=== PATIENT | female | born 1950 | race Caucasian/White ===

== ENCOUNTER 2022-01-06 09:29 | Inpatient (IN) | payer MEDICARE ==
[~2022-01-06] VITALS: Ht 167.6 cm; Wt 66.0 kg
--- NOTE | 2022-01-06 10:03 | PHYS DOC ---
Past Medical History Additional Past Medical Histor: ACUTE EMBOLISM, BRADYCARDIA Past Surgical History: Appendectomy Smoking Status: Former Smoker Alcohol Use: None General Adult EDM: Chief Complaint: LOWER EXT PAIN HPI: HPI: Patient is a 71 year old female from a assisted living home comes in with right leg pain. 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 Patient was initially not sure which leg she was having swelling and pain in due to her baseline dementia. Patient denies any chest pain or shortness of breath. Review of Systems: Review of Systems: Constitutional: Denies fever or chills. Eyes: Denies change in visual acuity. HENT: Denies nasal congestion or sore throat. Respiratory: Denies cough or shortness of breath. Cardiovascular: Denies chest pain or edema. GI: Denies abdominal pain, nausea, vomiting, bloody stools or diarrhea. [ : Denies dysuria. [] Musculoskeletal: Right leg pain. Denies back pain or joint pain. Integument: Denies rash. [ Neurologic: Denies headache, focal weakness or sensory changes. [ Endocrine: Denies polyuria or polydipsia. [] Lymphatic: Denies swollen glands. [] Psychiatric: Denies depression or anxiety. [] Heart Score: C/O Chest Pain: No Risk Factors: Risk Factors: DM, Current or recent (<one month) smoker, HTN, HLP, family h istory of CAD, obesity. Risk Scores: Score 0 - 3: 2.5% MACE over next 6 weeks - Discharge Home Score 4 - 6: 20.3% MACE over next 6 weeks - Admit for Clinical Observation Score 7 - 10: 72.7% MACE over next 6 weeks - Early Invasive Strategies Allergies: Allergies: Allergies Coded Allergies Type Severity Reaction Last Updated Verified meperidine Allergy Intermediate 01/06/22 Yes Physical Exam: PE: Constitutional: Well developed, well nourished, no acute distress, non-toxic appearance. [] HENT: Normocephalic, atraumatic, bilateral external ears normal, oropharynx moist, no oral exudates, nose normal. [] Eyes: PERRLA, EOMI, conjunctiva normal, no discharge. [] Neck: Normal range of motion, no tenderness, supple, no stridor. [] Cardiovascular:Heart rate regular rhythm, no murmur [] Lungs & Thorax: Bilateral breath sounds clear to auscultation [] Abdomen: Bowel sounds normal, soft, no tenderness, no masses, no pulsatile masses. [] Skin: Warm, dry, no erythema, no rash. [] Back: No tenderness, no CVA tenderness. [] Extremities: Patient has swelling of the right foot and nonpitting edema. Patient has erythema. Neurologic: Alert and oriented X 3, normal motor function, normal sensory function, no focal deficits noted. [] Psychologic: Affect normal, judgement normal, mood normal. [] Current Patient Data: Vital Signs: Vital Signs Date Time Temp Pulse Resp B/P (MAP) Pulse Ox O2 Delivery O2 Flow Rate FiO2 01/06/22 09:29 97.4 63 18 125/74 (91) 95 Room Air 97.4 EKG: EKG: [] Radiology/Procedures: Radiology/Procedures: [] Course & Med Decision Making: Course & Med Decision Making Pertinent Labs and Imaging studies reviewed. (See chart for details) [] Dragon Disclaimer: Luis Alfredo Disclaimer: This electronic medical record was generated, in whole or in part, using a voice recognition dictation system. NERY GERBER DO Jan 06, 2022 10:03
--- NOTE | 2022-01-06 10:40 | RAD ---
Examination: Bilateral Lower Extremity Venous Doppler Ultrasound History: Bilateral calf pain Comparison: None Procedure: Karimi scale, color flow 2D and spectal waveform analysis images are obtained with and witho ut compression in the area of the common femoral vein, superficial femoral vein - femoral vein juncti on, main femoral vein (superficial femoral vein) and popliteal vein. Veins of the proximal calf are a lso imaged. Findings: The bilateral common femoral vein, superficial femoral vein, right popliteal vein, calf veins are pat ent. There is echogenicity identified in the left popliteal vein likely partial nonocclusive thrombus . Impression: 1. Nonocclusive deep venous thrombus left popliteal vein. FOR INTERNAL CODING PURPOSES Critical result: Findings discussed with patient's nurse in ER at 01/06/2022 10:38 AM. RESULT CODE: (C) Electronically signed by: Jack Slaughter MD (01/06/2022 10:38 AM) [id number]
[2022-01-06] MEDS ORDERED: HEPARIN for IV BOLUS 10,000 UNIT/10 ML VIAL. IV PRN ×3 (11:45→12:45)
[2022-01-06] MEDS ORDERED: HEPARIN 25,000UTS/250ML PREMIX 250 ML IV PRN (11:45)
[2022-01-06] MEDS ORDERED: HEPARIN for IV BOLUS 10,000 UNIT/10 ML VIAL. IV ONE ×2 (12:00→12:45)
[2022-01-06 12:53] LABS: BASO % 0 % (0-3); EOS # 0.1 x10^3/uL (0.0-0.7); EOS % 1 % (0-3); HEMATOCRIT 32.3 % (36.0-47.0); HEMOGLOBIN 10.3 g/dL (12.0-15.5); LYMPH # 0.8 x10^3/uL (1.0-4.8); LYMPH % 7 % (24-48); MEAN CORPUSCULAR HEMOGLOBIN 25 pg (25-35); MEAN CORPUSCULAR HGB CONC 32 g/dL (31-37); MEAN CORPUSCULAR VOLUME 78 fL (79-100); MONO # 0.4 x10^3/uL (0.0-1.1); MONO % 3 % (0-9); NEUT # 11.5 x10^3/uL (1.8-7.7); NEUT % 89 % (31-73); PLATELET COUNT 360 x10^3/uL (140-400); RED BLOOD COUNT 4.15 x10^6/uL (3.50-5.40); RED CELL DISTRIBUTION WIDTH 17.1 % (11.5-14.5); WHITE BLOOD COUNT 12.9 x10^3/uL (4.0-11.0)
[2022-01-06 13:03] LABS: PROTHROMBIN TIME PATIENT 14.7 SEC (11.7-14.0)
[2022-01-06 13:09] LABS: CALCIUM 8.3 mg/dL (8.5-10.1); CREATININE 0.9 mg/dL (0.6-1.0); GFR 61.5; POTASSIUM 3.9 mmol/L (3.5-5.1)
[2022-01-06 13:15] LABS: ALBUMIN 2.1 g/dL (3.4-5.0); ALBUMIN/GLOBULIN RATIO 0.4 (1.0-1.7); TOTAL BILIRUBIN 0.3 mg/dL (0.2-1.0); TOTAL PROTEIN 7.1 g/dL (6.4-8.2)
[2022-01-06] MEDS ORDERED: DONE5TAB7 PO (13:29)
[2022-01-06] MEDS ORDERED: CALC-496 PO (13:29)
[2022-01-06] MEDS ORDERED: CALC11776 PO (13:29)
[2022-01-06] MEDS ORDERED: LANO454C2 TP (13:29)
[2022-01-06] MEDS ORDERED: ACET325T21 PO (13:29)
[2022-01-06] MEDS ORDERED: FERR325T14 PO (13:29)
[2022-01-06] MEDS ORDERED: CITA10TA8 PO (13:29)
[2022-01-06] MEDS ORDERED: MENT118G TP (13:29)
--- NOTE | 2022-01-06 14:20 | PDOC1 ---
History and Physical Date of Service: DOS: DATE: 01/06/22 TIME: 14:18 Chief Complaint: Chief Complain: Lower leg pain History of Present Illness: HPI: 71 year old female from a assisted living home comes in with right leg pain. 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 Patient was initially not sure which leg she was having swelling and pain in due to her baseline dementia. Patient denies any chest pain or shortness of breath. Past Medical/Surgical History: PMH/PSH: Additional Past Medical Histor: ACUTE EMBOLISM, BRADYCARDIA Past Surgical History: Appendectomy Allergies: Allergies: Coded Allergies: meperidine (Verified Allergy, Intermediate, 01/06/22) Family History: Family History: Reviewed with no relative findings in the chart Social History: Social History: Smoking Status: Former Smoker Alcohol Use: None Current Medications: Current Medications Current Medications Heparin Sodium (Porcine) (Heparin Sodium) 5,100 unit 1X ONCE IV ; Start 01/06/22 at 12:00; Stop 01/06/22 at 12:01; Status Cancel Heparin Sodium/ Dextrose 250 ml @ 10.416 mls/ hr CONT PRN IV PER PROTOCOL Last administered on 01/06/22at 12:46; Start 01/06/22 at 11:45 Heparin Sodium (Porcine) (Heparin Sodium) 1,900 unit PRN Q6HRS PRN IV FOR UFH LEVEL LESS THAN 0.2; Start 01/06/22 at 11:45; Stop 01/06/22 at 12:37; Status DC Heparin Sodium (Porcine) (Heparin Sodium) 950 unit PRN Q6HRS PRN IV FOR UFH LEVEL 0.2 - 0.29; Start 01/06/22 at 11:45; Stop 01/06/22 at 12:40; Status DC Heparin Sodium (Porcine) (Heparin Sodium) 2,000 unit PRN Q6HRS PRN IV FOR UFH LEVEL LESS THAN 0.2; Start 01/06/22 at 12:45 Heparin Sodium (Porcine) (Heparin Sodium) 5,200 unit 1X ONCE IV Last administered on 01/06/22at 12:45; Start 01/06/22 at 12:45; Stop 01/06/22 at 12:46; Status DC Heparin Sodium (Porcine) (Heparin Sodium) 1,000 unit PRN Q6HRS PRN IV FOR UFH LEVEL 0.2 - 0.29; Start 01/06/22 at 12:40 Active Scripts Active Reported Tums Ultra Strength (Calcium Carbonate) 470 Mg Tab.chew 470 Mg PO PRN Q4HRS PRN Acetaminophen 325 Mg Tablet 2 Tab PO PRN Q6HRS PRN 30 Days Donepezil Hcl 5 Mg Tablet 5 Mg PO DAILY Ferrous Sulfate 325 Mg Tablet 1 Tab PO TID Calcium 600 + Vit D3 Tablet (Calcium Carbonate/Vitamin D3) 1 Each Tablet 1 Tab PO BID 30 Days Biofreeze (Menthol) 118 Ml Gel..ml. 1 Mirta TP PRN TID PRN 10 Days Celexa (Citalopram Hydrobromide) 10 Mg Tablet 1 Tab PO DAILY Eucerin Cream (Lanolin Alcohol/Mo/W.pet/[place]) 454 Gm Cream..g. 454 Gm TP PRN BID PRN ROS: Review of Systems Review of System REVIEW OF SYSTEMS: GENERAL: Denies weakness SKIN: No bruising, hair changes or rashes. EYES: No blurred, double or loss of vision. NOSE AND THROAT: No history of nosebleeds, hoarseness or sore throat. HEART: No history of palpitations, chest pain or shortness of breath on exertion. LUNGS: Denies cough, hemoptysis, wheezing or shortness of breath. GASTROINTESTINAL: Denies changes in appetite, nausea, vomiting, diarrhea or constipation. GENITOURINARY: No history of frequency, urgency, hesitancy or nocturia. NEUROLOGIC: Denies history of numbness, tingling, or tremor. PSYCHIATRIC: No history of panic, anxiety or depression. ENDOCRINE: No history of heat or cold intolerance, polyuria or polydipsia. EXTREMITIES: Denies joint pain, pain on walking or stiffness. Physical Exam: Vital Signs: Vital Signs Date Time Temp Pulse Resp B/P (MAP) Pulse Ox O2 Delivery O2 Flow Rate FiO2 01/06/22 13:41 Room Air 01/06/22 12:46 62 16 120/58 (78) 91 01/06/22 09:29 97.4 97.4 Physcial Exam: GEN: No apparent distress. Alert and oriented HEENT: Normal cephalic, atraumatic, external auditory canals are patent EYES: Extraocular muscles are intact, pupil are equally round and reactive to light and accommodation MUSCULOSKELETAL: Well developed , well nourished, good range of motion ENDOCRINE: No thyromegaly was palpated LYMPHATICS: No cervical chain or axillary nodes were noted HEMATOPOIETIC: No bruising NECK: Supple, no JVD, no thyromegaly was noted LUNGS: Clear to auscultation in all lung jensen without rhonchi or wheezing HEART: RRR, S!, S2 present. Peripheral pulses intact, no obvious murmurs noted ABDOMEN: Soft, nontender. Positive bowel sounds, no organomegaly, normal bowel sounds EXTREMITIES: Without clubbing, cyanosis, or edema. Pedal pulses intact. Nega tive Homans sign NEUROLOGIC: Normal speech and tone. A&O x 3, moves all extremities, no obvious focal deficits PSYCHIATRIC: Normal affect, normal mood. Stable SKIN: No ulcerations or rashes, good skin turgor, no jaundice VASCULAR: Good capillary refill, neurovascular bundle appears to be intact Labs: Labs: Laboratory Tests Test 01/06/22 12:20 White Blood Count 12.9 x10^3/uL (4.0-11.0) Red Blood Count 4.15 x10^6/uL (3.50-5.40) Hemoglobin 10.3 g/dL (12.0-15.5) Hematocrit 32.3 % (36.0-47.0) Mean Corpuscular Volume 78 fL (79-100) Mean Corpuscular Hemoglobin 25 pg (25-35) Mean Corpuscular Hemoglobin Concent 32 g/dL (31-37) Red Cell Distribution Width 17.1 % (11.5-14.5) Platelet Count 360 x10^3/uL (140-400) Neutrophils (%) (Auto) 89 % (31-73) Lymphocytes (%) (Auto) 7 % (24-48) Monocytes (%) (Auto) 3 % (0-9) Eosinophils (%) (Auto) 1 % (0-3) Basophils (%) (Auto) 0 % (0-3) Neutrophils # (Auto) 11.5 x10^3/uL (1.8-7.7) Lymphocytes # (Auto) 0.8 x10^3/uL (1.0-4.8) Monocytes # (Auto) 0.4 x10^3/uL (0.0-1.1) Eosinophils # (Auto) 0.1 x10^3/uL (0.0-0.7) Basophils # (Auto) 0.0 x10^3/uL (0.0-0.2) Prothrombin Time 14.7 SEC (11.7-14.0) Prothromb Time International Ratio 1.2 (0.8-1.1) Sodium Level 139 mmol/L (136-145) Potassium Level 3.9 mmol/L (3.5-5.1) Chloride Level 103 mmol/L (98-107) Carbon Dioxide Level 30 mmol/L (21-32) Anion Gap 6 (6-14) Blood Urea Nitrogen 13 mg/dL (7-20) Creatinine 0.9 mg/dL (0.6-1.0) Estimated GFR (Cockcroft-Gault) 61.5 BUN/Creatinine Ratio 14 (6-20) Glucose Level 90 mg/dL (70-99) Calcium Level 8.3 mg/dL (8.5-10.1) Total Bilirubin 0.3 mg/dL (0.2-1.0) Aspartate Amino Transf (AST/SGOT) 23 U/L (15-37) Alanine Aminotransferase (ALT/SGPT) 23 U/L (14-59) Alkaline Phosphatase 58 U/L (46-116) Total Protein 7.1 g/dL (6.4-8.2) Albumin 2.1 g/dL (3.4-5.0) Albumin/Globulin Ratio 0.4 (1.0-1.7) Laboratory Tests Test 01/06/22 12:20 White Blood Count 12.9 x10^3/uL (4.0-11.0) Red Blood Count 4.15 x10^6/uL (3.50-5.40) Hemoglobin 10.3 g/dL (12.0-15.5) Hematocrit 32.3 % (36.0-47.0) Mean Corpuscular Volume 78 fL (79-100) Mean Corpuscular Hemoglobin 25 pg (25-35) Mean Corpuscular Hemoglobin Concent 32 g/dL (31-37) Red Cell Distribution Width 17.1 % (11.5-14.5) Platelet Count 360 x10^3/uL (140-400) Neutrophils (%) (Auto) 89 % (31-73) Lymphocytes (%) (Auto) 7 % (24-48) Monocytes (%) (Auto) 3 % (0-9) Eosinophils (%) (Auto) 1 % (0-3) Basophils (%) (Auto) 0 % (0-3) Neutrophils # (Auto) 11.5 x10^3/uL (1.8-7.7) Lymphocytes # (Auto) 0.8 x10^3/uL (1.0-4.8) Monocytes # (Auto) 0.4 x10^3/uL (0.0-1.1) Eosinophils # (Auto) 0.1 x10^3/uL (0.0-0.7) Basophils # (Auto) 0.0 x10^3/uL (0.0-0.2) Prothrombin Time 14.7 SEC (11.7-14.0) Prothromb Time International Ratio 1.2 (0.8-1.1) Sodium Level 139 mmol/L (136-145) Potassium Level 3.9 mmol/L (3.5-5.1) Chloride Level 103 mmol/L (98-107) Carbon Dioxide Level 30 mmol/L (21-32) Anion Gap 6 (6-14) Blood Urea Nitrogen 13 mg/dL (7-20) Creatinine 0.9 mg/dL (0.6-1.0) Estimated GFR (Cockcroft-Gault) 61.5 BUN/Creatinine Ratio 14 (6-20) Glucose Level 90 mg/dL (70-99) Calcium Level 8.3 mg/dL (8.5-10.1) Total Bilirubin 0.3 mg/dL (0.2-1.0) Aspartate Amino Transf (AST/SGOT) 23 U/L (15-37) Alanine Aminotransferase (ALT/SGPT) 23 U/L (14-59) Alkaline Phosphatase 58 U/L (46-116) Total Protein 7.1 g/dL (6.4-8.2) Albumin 2.1 g/dL (3.4-5.0) Albumin/Globulin Ratio 0.4 (1.0-1.7) Images: Images PROCEDURE: VENOUS LOWER EXT BILATERAL Examination: Bilateral Lower Extremity Venous Doppler Ultrasound History: Bilateral calf pain Comparison: None Procedure: Karimi scale, color flow 2D and spectal waveform analysis images are obtained with and without compression in the area of the common femoral vein, superficial femoral vein - femoral vein junction, main femoral vein (superficial femoral vein) and popliteal vein. Veins of the proximal calf are also imaged. Findings: The bilateral common femoral vein, superficial femoral vein, right popliteal vein, calf veins are patent. There is echogenicity identified in the left popliteal vein likely partial nonocclusive thrombus. Impression: 1. Nonocclusive deep venous thrombus left popliteal vein. Assessment/Plan Assessment/Plan Acute left lower extremity popliteal DVT, nonocclusive Microcytic anemia, likely due to VICTORINO Pending vascular studies Continue heparin drip and consider transitioning to Eliquis Justifications for Admission Other Justification DARIO CHRISTIANSON MD Jan 06, 2022 14:20
[2022-01-06] MEDS ORDERED: diphenhydrAMINE HCL 25 MG CAPSULE PO PRN ×2 (14:30)
[2022-01-06] MEDS ORDERED: PROCHLORPERAZINE 10 MG/2 ML VIAL. IV PRN (14:30)
[2022-01-06] MEDS ORDERED: DOCUSATE SODIUM 100 MG CAPSULE. PO PRN (14:30)
[2022-01-06] MEDS ORDERED: diphenhydrAMINE 50 MG/ML VIAL IVP PRN (14:30)
[2022-01-06] MEDS ORDERED: ZOLPIDEM 5 MG TABLET. PO PRN (14:30)
[2022-01-06] MEDS ORDERED: LORazepam 0.5 MG TABLET PO PRN (14:30)
[2022-01-06] MEDS ORDERED: DEXTROSE 50% 25 GM / 50ML DISP.SYRIN. IV PRN (14:30)
[2022-01-06] MEDS ORDERED: ONDANSETRON PF 4 MG/2 ML VIAL. IVP PRN (14:30)
[2022-01-06] MEDS ORDERED: CALCIUM CARBONATE 500 MG TAB.CHEW PO PRN (14:30)
[2022-01-06] MEDS ORDERED: ACETAMINOPHEN 325 MG TABLET. PO PRN (14:30)
[2022-01-06] MEDS ORDERED: SENNOSIDES 8.6 MG TABLET PO PRN (14:30)
[2022-01-06] MEDS ORDERED: METHYL SALICYLATE/MENTHOL TOPICAL CREAM 57GM TUBE. TP PRN (14:45)
[2022-01-06 15:00] VITALS: BP 123/64
[2022-01-06] MEDS: CALCIUM CARB/VIT D3 500/200 TABLET. PO SCH (16:20)
[2022-01-06 19:00] VITALS: BP 141/57
[2022-01-06] MEDS: HEPARIN for IV BOLUS 10,000 UNIT/10 ML VIAL. IV PRN (19:36)
[2022-01-06 23:03] VITALS: BP 101/43
[2022-01-07 01:41] LABS: BASO % 0 % (0-3); EOS # 0.1 x10^3/uL (0.0-0.7); EOS % 1 % (0-3); HEMATOCRIT 31.1 % (36.0-47.0); HEMOGLOBIN 9.8 g/dL (12.0-15.5); LYMPH # 1.3 x10^3/uL (1.0-4.8); LYMPH % 10 % (24-48); MEAN CORPUSCULAR HEMOGLOBIN 24 pg (25-35); MEAN CORPUSCULAR HGB CONC 32 g/dL (31-37); MEAN CORPUSCULAR VOLUME 78 fL (79-100); MONO # 0.4 x10^3/uL (0.0-1.1); MONO % 3 % (0-9); NEUT # 11.5 x10^3/uL (1.8-7.7); NEUT % 86 % (31-73); PLATELET COUNT 337 x10^3/uL (140-400); RED BLOOD COUNT 4.02 x10^6/uL (3.50-5.40); RED CELL DISTRIBUTION WIDTH 17.1 % (11.5-14.5); WHITE BLOOD COUNT 13.4 x10^3/uL (4.0-11.0)
[2022-01-07] MEDS: HEPARIN for IV BOLUS 10,000 UNIT/10 ML VIAL. IV PRN (02:03)
[2022-01-07 02:10] LABS: ALBUMIN 1.9 g/dL (3.4-5.0); ALBUMIN/GLOBULIN RATIO 0.4 (1.0-1.7); CALCIUM 8.2 mg/dL (8.5-10.1); CREATININE 0.9 mg/dL (0.6-1.0); GFR 61.5; PHOSPHORUS 3.9 mg/dL (2.6-4.7); POTASSIUM 4.5 mmol/L (3.5-5.1); TOTAL BILIRUBIN 0.3 mg/dL (0.2-1.0); TOTAL PROTEIN 6.5 g/dL (6.4-8.2)
[2022-01-07 03:07] VITALS: BP 107/52
[2022-01-07 07:00] VITALS: BP 137/61
[2022-01-07] MEDS: CALCIUM CARB/VIT D3 500/200 TABLET. PO SCH ×2 (08:08→16:11)
--- NOTE | 2022-01-07 08:59 | PDOC ---
[facility] PROGRESS NOTE Date of Service DOS: DATE: 01/07/22 TIME: 08:58 Chief Complaint Chief Complaint Left leg DVT -popliteal fossa Right leg cellulitis -decreased pulses we will check vascular studies History of Present Illness History of Present Illness Seen bedside on heparin gtt. Left leg with less pain. Transition to oral Eliquis today. Right leg swollen red decreased pulses will obtain arterial Doppler and has lateral malleoli are eschar will start on doxycycline and Keflex for cellulitis. Vitals/I&O Vitals/I&O: Vital Signs Date Time Temp Pulse Resp B/P (MAP) Pulse Ox O2 Delivery O2 Flow Rate FiO2 01/07/22 08:00 Room Air 01/07/22 07:00 98.0 66 18 137/61 (86) 95 98.0 Labs Labs: Laboratory Tests Test 01/06/22 12:20 01/06/22 18:30 01/07/22 01:30 White Blood Count 12.9 x10^3/uL (4.0-11.0) 13.4 x10^3/uL (4.0-11.0) Red Blood Count 4.15 x10^6/uL (3.50-5.40) 4.02 x10^6/uL (3.50-5.40) Hemoglobin 10.3 g/dL (12.0-15.5) 9.8 g/dL (12.0-15.5) Hematocrit 32.3 % (36.0-47.0) 31.1 % (36.0-47.0) Mean Corpuscular Volume 78 fL (79-100) 78 fL (79-100) Mean Corpuscular Hemoglobin 25 pg (25-35) 24 pg (25-35) Mean Corpuscular Hemoglobin Concent 32 g/dL (31-37) 32 g/dL (31-37) Red Cell Distribution Width 17.1 % (11.5-14.5) 17.1 % (11.5-14.5) Platelet Count 360 x10^3/uL (140-400) 337 x10^3/uL (140-400) Neutrophils (%) (Auto) 89 % (31-73) 86 % (31-73) Lymphocytes (%) (Auto) 7 % (24-48) 10 % (24-48) Monocytes (%) (Auto) 3 % (0-9) 3 % (0-9) Eosinophils (%) (Auto) 1 % (0-3) 1 % (0-3) Basophils (%) (Auto) 0 % (0-3) 0 % (0-3) Neutrophils # (Auto) 11.5 x10^3/uL (1.8-7.7) 11.5 x10^3/uL (1.8-7.7) Lymphocytes # (Auto) 0.8 x10^3/uL (1.0-4.8) 1.3 x10^3/uL (1.0-4.8) Monocytes # (Auto) 0.4 x10^3/uL (0.0-1.1) 0.4 x10^3/uL (0.0-1.1) Eosinophils # (Auto) 0.1 x10^3/uL (0.0-0.7) 0.1 x10^3/uL (0.0-0.7) Basophils # (Auto) 0.0 x10^3/uL (0.0-0.2) 0.0 x10^3/uL (0.0-0.2) Prothrombin Time 14.7 SEC (11.7-14.0) Prothromb Time International Ratio 1.2 (0.8-1.1) Sodium Level 139 mmol/L (136-145) 137 mmol/L (136-145) Potassium Level 3.9 mmol/L (3.5-5.1) 4.5 mmol/L (3.5-5.1) Chloride Level 103 mmol/L (98-107) 104 mmol/L (98-107) Carbon Dioxide Level 30 mmol/L (21-32) 29 mmol/L (21-32) Anion Gap 6 (6-14) 4 (6-14) Blood Urea Nitrogen 13 mg/dL (7-20) 12 mg/dL (7-20) Creatinine 0.9 mg/dL (0.6-1.0) 0.9 mg/dL (0.6-1.0) Estimated GFR (Cockcroft-Gault) 61.5 61.5 BUN/Creatinine Ratio 14 (6-20) 13 (6-20) Glucose Level 90 mg/dL (70-99) 108 mg/dL (70-99) Calcium Level 8.3 mg/dL (8.5-10.1) 8.2 mg/dL (8.5-10.1) Total Bilirubin 0.3 mg/dL (0.2-1.0) 0.3 mg/dL (0.2-1.0) Aspartate Amino Transf (AST/SGOT) 23 U/L (15-37) 18 U/L (15-37) Alanine Aminotransferase (ALT/SGPT) 23 U/L (14-59) 17 U/L (14-59) Alkaline Phosphatase 58 U/L (46-116) 53 U/L (46-116) Total Protein 7.1 g/dL (6.4-8.2) 6.5 g/dL (6.4-8.2) Albumin 2.1 g/dL (3.4-5.0) 1.9 g/dL (3.4-5.0) Albumin/Globulin Ratio 0.4 (1.0-1.7) 0.4 (1.0-1.7) Heparin Anti-Xa Act, Unfractionated 0.26 IU/mL (0.30-0.70) 0.27 IU/mL (0.30-0.70) Phosphorus Level 3.9 mg/dL (2.6-4.7) Magnesium Level 2.0 mg/dL (1.8-2.4) Assessment and Plan Assessmemt and Plan Problems Medical Problems: (1) DVT (deep venous thrombosis) Status: Acute Comment Review of Relevant I have reviewed the following items charla (where applicable) has been applied. Medications: Current Medications Medications (Trade) Dose Ordered Sig/Jurgen Route PRN Reason Start Time Stop Time Status Last Admin Dose Admin Heparin Sodium/ Dextrose 250 ml @ 10.416 mls/ hr CONT PRN IV PER PROTOCOL 01/06/22 11:45 01/06/22 12:46 Heparin Sodium (Porcine) (Heparin Sodium) 5,200 unit 1X ONCE IV 01/06/22 12:45 01/06/22 12:46 DC 01/06/22 12:45 Heparin Sodium (Porcine) (Heparin Sodium) 1,000 unit PRN Q6HRS PRN IV FOR UFH LEVEL 0.2 - 0.29 01/06/22 12:40 01/07/22 02:03 Citalopram Hydrobromide (CeleXA) 10 mg DAILY PO 01/07/22 09:00 01/07/22 08:08 Calcium/Vitamin D (Oscal D 500mg/ 200uts) 1 tab BIDWMEALS PO 01/06/22 17:00 01/07/22 08:08 Justifications for Admission Other Justification DVT of the lower extremity ACE VALERIO MD Jan 07, 2022 08:59
[2022-01-07] MEDS ORDERED: CEPHALEXIN 250 MG CAPSULE. PO SCH (09:00)
[2022-01-07] MEDS ORDERED: DOXYCYCLINE HYCLATE 100 MG TABLET PO SCH (09:00)
[2022-01-07] MEDS ORDERED: APIXABAN 5 MG TABLET. PO SCH (09:00)
[2022-01-07] MEDS ORDERED: CITALOPRAM 10 MG TABLET. PO SCH (09:00)
[2022-01-07 11:00] VITALS: BP 118/50
[2022-01-07] MEDS ORDERED: LACTOBACILLUS RHAMNOSUS GG 1 CAPSULE. PO SCH (11:00)
--- NOTE | 2022-01-07 11:35 | RAD ---
US RIGHT LOWER EXTREMITY ARTERIAL DUPLEX EVAL Indication: Reason: Cellulitis, lateral wound, decreased pulses, concern for P.A.D. / Spl. Instructio ns: / History: Comparison: None. Procedure: Real-time grayscale, color flow Doppler, and Doppler spectral waveform analysis of the art erial system of the lower extremity is performed. Findings: Right lower extremity: Triphasic or biphasic waveforms throughout the majority the right lower extrem ity. Monophasic waveforms within the anterior tibial and dorsalis pedis artery. No significant veloci ty elevation. No occlusion. Mild atheromatous plaque. IMPRESSION: 1. Monophasic waveform within the anterior tibial and dorsalis pedis arteries, may indicate proximal stenosis. 2. Mild atheromatous plaque. Electronically signed by: Carlos Morrison DO (01/07/2022 11:32 AM) [id number]
--- NOTE | 2022-01-07 12:41 | NUR ---
SS following for discharge planning. SS reviewed pt chart and discussed with pt RN. Pt is from [facility], ; fax [phone], and is currently on room air. PT/OT ordered. Probable discharge back to the [facility] later today. Clinical updates phoned and faxed to the [facility]. SS will continue to follow for discharge planning. Addendum: 01/07/22 at 1519 by NIKOLE THOMAS Discharge orders received and sent to the [facility]. RN spoke with DEQUAN Diego at the [facility]. Pt will discharge today and return to the [facility] between 1700 and 1730 via [email or web address] transportation, .
[2022-01-07] MEDS ORDERED: DOXY100T PO (14:12)
[2022-01-07] MEDS ORDERED: CEPH250C PO (14:12)
[2022-01-07] MEDS ORDERED: APIX5TAB PO (14:12)
--- NOTE | 2022-01-07 14:15 | SNU/HH DC ---
DISCHARGE WITH HOME HEALTH DISCHARGE INFORMATION: Discharge Date: Jan 07, 2022 Final Diagnosis: Problems Medical Problems: (1) DVT (deep venous thrombosis) Status: Acute Condition on Discharge: Stable CODE STATUS: Code Status: Full HOME HEALTH: Face to Face: I certify this patient is under my care and that I, or a nurse practitioner or physician's pet care assistant working with me, had a face to face encounter that meets the physician face to face encounter requirements with this patient on 01/07/2022. Medical Complications: Dementia, Other (DVT) Penitentiary For: Assess & Educate Safety, Medication Management RN For Eval/Treatment: Yes Physical Therapy For: Evalulation/Treatment Occupational Therapy For: Evaluation/Treatment Pt Meets Homebound Status: Limited distance walking, Poor cognition POST DISCHARGE ORDERS: Activity Instructions for Disc: Resume previous activity Weight Bearing Status after Di: Full weight bearing DIET AFTER DISCHARGE: Regular Wound/Incision Care: Keep wound/cast CDI CHECKS AFTER DISCHARGE: Checks after discharge: Check blood press - daily, Check your Temp as needed FOLLOW-UP: Additional Instructions: For peripheral arterial disease: Vascular Surgery - Dr. Joi Hudson [id number] [place] [address] For blood clot/DVT management: Dr. Matthew Crawley [address], [place], [place] [address] P: [phone] F: [phone] Podiatry - Dr. Bonita Harley [facility] [address] [place] [address] CERTIFICATION STATEMENT: Certification Statement: Certification Statement: Based on the above finding, I certify that this patient is confined to the home and needs intermittent mcfp care, physical therapy and/or speech therapy, or continues to need occupational therapy.~ This patient is under my care, and I have initiated the establishment of the plan of care.~ This patient will be followed by myself or a community physician who will periodically review the plan of care. Home Meds Active Scripts Apixaban (ELIQUIS) 5 Mg Tablet, 10 MG PO BID for DVT for 30 Days, #74 TAB 11 Refills Prov:ACE VALERIO MD 01/07/22 Doxycycline Hyclate (DOXYCYCLINE HYCLATE) 100 Mg Tablet, 100 MG PO BID for Cellulitis for 7 Days, #14 TAB Prov:ACE VALERIO MD 01/07/22 Cephalexin (KEFLEX) 250 Mg Capsule, 500 MG PO BID for Cellulitis for 7 Days, #28 CAP Prov:ACE VALERIO MD 01/07/22 Reported Medications Calcium Carbonate (Tums Ultra Strength) 470 Mg Tab.chew, 470 MG PO PRN Q4HRS PRN for HEARTBURN / GAS, TAB.CHEW 01/06/22 Acetaminophen (ACETAMINOPHEN) 325 Mg Tablet, 2 TAB PO PRN Q6HRS PRN for pain or fever for 30 Days, #30 TAB 0 Refills 01/06/22 Donepezil Hcl (DONEPEZIL HCL) 5 Mg Tablet, 5 MG PO DAILY for DEMENTIA , TAB 01/06/22 Ferrous Sulfate (FERROUS SULFATE) 325 Mg Tablet, 1 TAB PO TID for ANEMIA , #60 TAB 3 Refills 01/06/22 Calcium Carbonate/Vitamin D3 (CALCIUM 600 + VIT D3 TABLET) 1 Each Tablet, 1 TAB PO BID for SUPPLEMENT for 30 Days, #60 TAB 0 Refills 01/06/22 Menthol (BIOFREEZE) 118 Ml Gel..ml., 1 CHRISTIANO TP PRN TID PRN for PAIN for 10 Days, #118 ML 0 Refills 01/06/22 Citalopram Hydrobromide (CELEXA) 10 Mg Tablet, 1 TAB PO DAILY for DEPRESSION, #30 TAB 2 Refills 01/06/22 Lanolin Alcohol/Mo/W.pet/[place] (Eucerin Cream) 454 Gm Cream..g., 454 GM TP PRN BID PRN for DRY SKIN / SCALING, EACH 01/06/22 ACE VALERIO MD Jan 07, 2022 14:15
--- NOTE | 2022-01-07 14:22 | PDOC3 ---
Discharge Summary Visit Information Date of Admission: Jan 06, 2022 Date of Discharge: Jan 07, 2022 Admitting Diagnosis: Left popliteal DVT Final Diagnosis Problems Medical Problems: (1) DVT (deep venous thrombosis) Status: Acute Brief Hospital Course Allergies Allergies Coded Allergies Type Severity Reaction Last Updated Verified meperidine Allergy Intermediate 01/06/22 Yes Vital Signs Vital Signs Date Time Temp Pulse Resp B/P (MAP) Pulse Ox O2 Delivery O2 Flow Rate FiO2 01/07/22 11:00 97.4 49 18 118/50 (72) 98 Room Air 97.4 Lab Results Laboratory Tests Test 01/06/22 12:20 01/06/22 18:30 01/07/22 01:30 01/07/22 10:00 White Blood Count 12.9 x10^3/uL (4.0-11.0) 13.4 x10^3/uL (4.0-11.0) Red Blood Count 4.15 x10^6/uL (3.50-5.40) 4.02 x10^6/uL (3.50-5.40) Hemoglobin 10.3 g/dL (12.0-15.5) 9.8 g/dL (12.0-15.5) Hematocrit 32.3 % (36.0-47.0) 31.1 % (36.0-47.0) Mean Corpuscular Volume 78 fL (79-100) 78 fL (79-100) Mean Corpuscular Hemoglobin 25 pg (25-35) 24 pg (25-35) Mean Corpuscular Hemoglobin Concent 32 g/dL (31-37) 32 g/dL (31-37) Red Cell Distribution Width 17.1 % (11.5-14.5) 17.1 % (11.5-14.5) Platelet Count 360 x10^3/uL (140-400) 337 x10^3/uL (140-400) Neutrophils (%) (Auto) 89 % (31-73) 86 % (31-73) Lymphocytes (%) (Auto) 7 % (24-48) 10 % (24-48) Monocytes (%) (Auto) 3 % (0-9) 3 % (0-9) Eosinophils (%) (Auto) 1 % (0-3) 1 % (0-3) Basophils (%) (Auto) 0 % (0-3) 0 % (0-3) Neutrophils # (Auto) 11.5 x10^3/uL (1.8-7.7) 11.5 x10^3/uL (1.8-7.7) Lymphocytes # (Auto) 0.8 x10^3/uL (1.0-4.8) 1.3 x10^3/uL (1.0-4.8) Monocytes # (Auto) 0.4 x10^3/uL (0.0-1.1) 0.4 x10^3/uL (0.0-1.1) Eosinophils # (Auto) 0.1 x10^3/uL (0.0-0.7) 0.1 x10^3/uL (0.0-0.7) Basophils # (Auto) 0.0 x10^3/uL (0.0-0.2) 0.0 x10^3/uL (0.0-0.2) Prothrombin Time 14.7 SEC (11.7-14.0) Prothromb Time International Ratio 1.2 (0.8-1.1) Sodium Level 139 mmol/L (136-145) 137 mmol/L (136-145) Potassium Level 3.9 mmol/L (3.5-5.1) 4.5 mmol/L (3.5-5.1) Chloride Level 103 mmol/L (98-107) 104 mmol/L (98-107) Carbon Dioxide Level 30 mmol/L (21-32) 29 mmol/L (21-32) Anion Gap 6 (6-14) 4 (6-14) Blood Urea Nitrogen 13 mg/dL (7-20) 12 mg/dL (7-20) Creatinine 0.9 mg/dL (0.6-1.0) 0.9 mg/dL (0.6-1.0) Estimated GFR (Cockcroft-Gault) 61.5 61.5 BUN/Creatinine Ratio 14 (6-20) 13 (6-20) Glucose Level 90 mg/dL (70-99) 108 mg/dL (70-99) Calcium Level 8.3 mg/dL (8.5-10.1) 8.2 mg/dL (8.5-10.1) Total Bilirubin 0.3 mg/dL (0.2-1.0) 0.3 mg/dL (0.2-1.0) Aspartate Amino Transf (AST/SGOT) 23 U/L (15-37) 18 U/L (15-37) Alanine Aminotransferase (ALT/SGPT) 23 U/L (14-59) 17 U/L (14-59) Alkaline Phosphatase 58 U/L (46-116) 53 U/L (46-116) Total Protein 7.1 g/dL (6.4-8.2) 6.5 g/dL (6.4-8.2) Albumin 2.1 g/dL (3.4-5.0) 1.9 g/dL (3.4-5.0) Albumin/Globulin Ratio 0.4 (1.0-1.7) 0.4 (1.0-1.7) Heparin Anti-Xa Act, Unfractionated 0.26 IU/mL (0.30-0.70) 0.27 IU/mL (0.30-0.70) 0.31 IU/mL (0.30-0.70) Phosphorus Level 3.9 mg/dL (2.6-4.7) Magnesium Level 2.0 mg/dL (1.8-2.4) Laboratory Tests Test 01/06/22 18:30 01/07/22 01:30 01/07/22 10:00 Heparin Anti-Xa Act, Unfractionated 0.26 IU/mL (0.30-0.70) 0.27 IU/mL (0.30-0.70) 0.31 IU/mL (0.30-0.70) White Blood Count 13.4 x10^3/uL (4.0-11.0) Red Blood Count 4.02 x10^6/uL (3.50-5.40) Hemoglobin 9.8 g/dL (12.0-15.5) Hematocrit 31.1 % (36.0-47.0) Mean Corpuscular Volume 78 fL (79-100) Mean Corpuscular Hemoglobin 24 pg (25-35) Mean Corpuscular Hemoglobin Concent 32 g/dL (31-37) Red Cell Distribution Width 17.1 % (11.5-14.5) Platelet Count 337 x10^3/uL (140-400) Neutrophils (%) (Auto) 86 % (31-73) Lymphocytes (%) (Auto) 10 % (24-48) Monocytes (%) (Auto) 3 % (0-9) Eosinophils (%) (Auto) 1 % (0-3) Basophils (%) (Auto) 0 % (0-3) Neutrophils # (Auto) 11.5 x10^3/uL (1.8-7.7) Lymphocytes # (Auto) 1.3 x10^3/uL (1.0-4.8) Monocytes # (Auto) 0.4 x10^3/uL (0.0-1.1) Eosinophils # (Auto) 0.1 x10^3/uL (0.0-0.7) Basophils # (Auto) 0.0 x10^3/uL (0.0-0.2) Sodium Level 137 mmol/L (136-145) Potassium Level 4.5 mmol/L (3.5-5.1) Chloride Level 104 mmol/L (98-107) Carbon Dioxide Level 29 mmol/L (21-32) Anion Gap 4 (6-14) Blood Urea Nitrogen 12 mg/dL (7-20) Creatinine 0.9 mg/dL (0.6-1.0) Estimated GFR (Cockcroft-Gault) 61.5 BUN/Creatinine Ratio 13 (6-20) Glucose Level 108 mg/dL (70-99) Calcium Level 8.2 mg/dL (8.5-10.1) Phosphorus Level 3.9 mg/dL (2.6-4.7) Magnesium Level 2.0 mg/dL (1.8-2.4) Total Bilirubin 0.3 mg/dL (0.2-1.0) Aspartate Amino Transf (AST/SGOT) 18 U/L (15-37) Alanine Aminotransferase (ALT/SGPT) 17 U/L (14-59) Alkaline Phosphatase 53 U/L (46-116) Total Protein 6.5 g/dL (6.4-8.2) Albumin 1.9 g/dL (3.4-5.0) Albumin/Globulin Ratio 0.4 (1.0-1.7) Brief Hospital Course 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 Patient was initially not sure which leg she was having swelling and pain in due to her baseline dementia. Patient denies any chest pain or shortness of breath. Found with left popliteal DVT on venous Dopplers. Started on antibiotics for right lower extremity cellulitis and lateral malleolar ulcer. 01/07: Seen bedside on heparin gtt. Left leg with less pain. Transition to oral Eliquis today. Right leg swollen red decreased pulses will obtain arterial Doppler and has lateral malleoli are eschar will start on doxycycline and Keflex for cellulitis. Arterial doppler: Right lower extremity: Triphasic or biphasic waveforms throughout the majority the right lower extremity. Monophasic waveforms within the anterior tibial and dorsalis pedis artery. No significant velocity elevation. No occlusion. Mild atheromatous plaque. IMPRESSION: 1. Monophasic waveform within the anterior tibial and dorsalis pedis arteries, may indicate proximal stenosis. 2. Mild atheromatous plaque. Seen with family bedside counseled on need for surgery follow-up with vascular surgery for concern for aortic iliac or femoral arterial disease and oncology hematology follow-up for recurrent DVT. Also given referral for podiatry outpatient follow-up for onychomycosis of nails and left hammertoe. Her daughter is working on a higher level of memory care given the progression of her dementia as well. Discharge to living in assisted living facility with physician directed home health Problem list: Left leg DVT -popliteal fossa . This is her second DVT in 5 years. Will give 1 year of Eliquis and outpatient follow-up with hematology likely needs lifelong anticoagulation Right leg cellulitis -decreased pulses we will check vascular studies with outpatient aortogram. Given referral to vascular surgery no discrete occlusive disease likely iliac or aortobifemoral. HLD - statin Dementia, alzheimer type - on aricept Right lateral malleolar ulcer -antibiotics for cellulitis and outpatient vascular surgery referral. Greater than 30 minutes spent on d/c to home health at assisted living facility Discharge Information Condition at Discharge: Improved Follow Up: Weeks (2) Disposition/Orders: D/C to Home w/ HH Scheduled Apixaban (Eliquis) 5 Mg Tablet, 10 MG PO BID for DVT for 30 Days, #74 Ref 11 Prescribed by: ACE VALERIO MD on 01/07/221411 Calcium Carbonate/Vitamin D3 (Calcium 600 + Vit D3 Tablet) 1 Each Tablet, 1 TAB PO BID for SUPPLEMENT for 30 Days, #60 Ref 0 (Reported) Entered as Reported by: JASON RICHARDS on 01/06/221328 Last Taken: Unknown Dose on 01/06/22 Last Action: Converted on 01/06/221421 by DARIO CHRISTIANSON MD Cephalexin (Keflex) 250 Mg Capsule, 500 MG PO BID for Cellulitis for 7 Days, #28 Prescribed by: ACE VALERIO MD on 01/07/221411 Citalopram Hydrobromide (Celexa) 10 Mg Tablet, 1 TAB PO DAILY for DEPRESSION, #30 Ref 2 (Reported) Entered as Reported by: JASON RICHARDS on 01/06/221328 Last Taken: Unknown Dose on 01/06/22 Last Action: Continued on 01/06/221421 by DARIO CHRISTIANSON MD Donepezil Hcl (Donepezil Hcl) 5 Mg Tablet, 5 MG PO DAILY for DEMENTIA , (Reported) Entered as Reported by: JASON RICHARDS on 01/06/221328 Last Taken: Unknown Dose on 01/06/22 Last Action: New Order on 01/06/221328 by JASON RICHARDS Doxycycline Hyclate (Doxycycline Hyclate) 100 Mg Tablet, 100 MG PO BID for Cellulitis for 7 Days, #14 Prescribed by: ACE VALERIO MD on 01/07/221411 Ferrous Sulfate (Ferrous Sulfate) 325 Mg Tablet, 1 TAB PO TID for ANEMIA , #60 Ref 3 (Reported) Entered as Reported by: JASON RICHARDS on 01/06/221328 Last Taken: Unknown Dose on 01/06/22 Last Action: New Order on 01/06/221328 by JASON RICHARDS Scheduled PRN Acetaminophen (Acetaminophen) 325 Mg Tablet, 2 TAB PO PRN Q6HRS PRN for pain or fever for 30 Days, #30 Ref 0 (Reported) Entered as Reported by: JASON RICHARDS on 01/06/221328 Last Taken: UNKNOWN on Unknown Date & Time Last Action: New Order on 01/06/221328 by JASON RICHARDS Calcium Carbonate (Tums Ultra Strength) 470 Mg Tab.chew, 470 MG PO PRN Q4HRS PRN for HEARTBURN / GAS, (Reported) Entered as Reported by: JASON RICHARDS on 01/06/221328 Last Taken: UNKNOWN on Unknown Date & Time Last Action: Converted on 01/06/221421 by DARIO CHRISTIANSON MD Lanolin Alcohol/Mo/W.pet/[place] (Eucerin Cream) 454 Gm Cream..g., 454 GM TP PRN BID PRN for DRY SKIN / SCALING, (Reported) Entered as Reported by: JASON RICHARDS on 01/06/221328 Last Taken: UNKNOWN on Unknown Date & Time Last Action: New Order on 01/06/221328 by JASON RICHARDS Menthol (Biofreeze) 118 Ml Gel..ml., 1 CHRISTIANO TP PRN TID PRN for PAIN for 10 Days, #118 Ref 0 (Reported) Entered as Reported by: JASON RICHARDS on 01/06/221328 Last Taken: UNKNOWN on Unknown Date & Time Last Action: Converted on 01/06/221421 by DARIO CHRISTIANSON MD Justicifation of Admission Dx: Justifications for Admission: Justification of Admission Dx: Yes ACE VALERIO MD Jan 07, 2022 14:22
[2022-01-07 15:00] VITALS: BP 80/45
--- NOTE | 2022-01-07 16:59 | NUR ---
Discharge Note: PT DISCHARGED TO [facility] WITH HOME HEALTH. PT LEFT FACILITY VIA [facility] AT 1700. PT STABLE AND ALERT UPON DISCHARGE. PT PIV REMOVED FROM R FA WITHOUT COMPLICATIONS, BANDAGE APPLIED. REPORT CALLED TO [facility]ANA [employer]LINE PRODUCER AT [facility] AT 1615. EDUCATED ABOUT DISCHARGE INSTRUCTIONS, DISCHARGE MEDICATIONS, AND FOLLOW-UP CARE INSTRUCTIONS. NO CONCERNS VOICED AT THIS TIME. PT LEFT WITH ALL PERSONAL BELONGINGS. ELSI MOYA Discharge instructions and discharge home medications reviewed with Patient and a copy given. All questions have been answered and understanding verbalized.
== END 2022-01-07 17:00 | disposition home health service (06) | DRG 299 ==
LOC: ER 09:29 → ED HOLD 11:05 → 5 NORTH 13:09
PROVIDERS: ADMIT Internal Medicine; ATTEND Internal Medicine
DX: I82.432 Acute embolism and thrombosis of left popliteal vein (principal); E43 Unspecified severe protein-calorie malnutrition; L03.115 Cellulitis of right lower limb; L97.319 Non-pressure chronic ulcer of right ankle with unspecified severity; D50.9 Iron deficiency anemia, unspecified; B35.1 Tinea unguium; E78.5 Hyperlipidemia, unspecified; F02.80 Dementia in other diseases classified elsewhere, unspecified severity, without behavioral disturbance, psychotic disturbance, mood disturbance, and anxiety; G30.9 Alzheimer's disease, unspecified; M20.42 Other hammer toe(s) (acquired), left foot; Z86.718 Personal history of other venous thrombosis and embolism; Z87.891 Personal history of nicotine dependence; Z90.49 Acquired absence of other specified parts of digestive tract; Z88.8 Allergy status to other drugs, medicaments and biological substances
CPT/HCPCS: 36415; 80053; 83735; 84100; 85025; 85520; 85610; 93926; 93970; 96374; 96376; J1644; 99285-25; G0378